=== PATIENT | male | born 1960 | race Two or more races ===

== ENCOUNTER → 2024-01-04 | Day surgery (SDC) | payer OTHER ==
[2024-01-02 15:46] LABS: Urine Bacteria None Seen /hpf (None Seen)
[2024-01-02 15:51] LABS: Urine Blood Negative /uL (Negative); Urine Clarity Clear (Clear); Urine Color Yellow (Yellow); Urine Protein, UAD Negative (Negative); Urine Specific Gravity 1.018 (1.001-1.035); Urine Urobilinogen Normal (Negative); Urine WBC 1 /hpf (0 - 3)
[2024-01-02 15:54] LABS: Basophils # (auto) 0.1 10 ^3/uL (0-0.2); Basophils % (auto) 0.9 % (0.0-2.0); Eosinophils # (auto) 0.3 10 ^3/uL (0-0.8); Eosinophils % (auto) 3.2 % (0.0-7.0); Hematocrit 42.2 % (41.0-53.0); Hemoglobin 14.7 g/dL (13.5-17.5); Lymphocytes # (auto) 2.1 10 ^3/uL (0.4-5.4); Lymphocytes % (auto) 23.6 % (10.0-50.0); Mean Corpuscular Hemoglobin 29.5 pg (28.0-32.0); Mean Corpuscular Hgb Conc. 34.7 g/dL (32.0-36.0); Mean Corpuscular Volume 84.9 fL (80.0-100.0); Monocytes # (auto) 0.7 10 ^3/uL (0-1.3); Monocytes % (auto) 7.9 % (0.0-12.0); Neutrophils # (auto) 5.9 10 ^3/uL (1.6-8.6); Neutrophils % (auto) 64.4 % (37.0-80.0); Nucleated Red Blood Cells % 0.1 %; Platelet Count (auto) 340 10^3/uL (140-450); Red Blood Cells 4.98 10^6/uL (4.5-5.90); Red Cell Distribution Width 14.3 % (11.8-14.3); White Blood Cell 9.1 10^3/uL (4.4-10.8)
[2024-01-02 16:14] LABS: INR 0.98 (0.9-1.15); Partial Thromboplastin Time 25.6 SEC (24.5-34.5); Prothrombin Time 10.4 sec (9.3-11.8)
[2024-01-02 16:52] LABS: Alanine Aminotransferase 35 U/L (7-40); Albumin 4.5 g/dL (3.2-4.8); Alkaline Phosphatase 73 U/L (46-116); Anion Gap 8 (5-15); Aspartate Aminotransferase 12 U/L (13-40); BUN/Creatinine Ratio 14.9 (10.0-20.0); Bilirubin, Total 0.6 mg/dL (0.2-1.0); Blood Urea Nitrogen 14 mg/dL (9-23); Calcium 10.8 mg/dL (8.7-10.4); Carbon Dioxide 27 mmol/L (20-31); Chloride 109 mmol/L (98-107); Glucose 105 mg/dL (74-106); Potassium 3.9 mmol/L (3.5-5.1); Sodium 144 mmol/L (136-145); Total Protein 6.6 g/dL (5.7-8.2)
[~2024-01-04] VITALS: Ht 180.3 cm; Wt 113.4 kg
[~2024-01-04] MED LIST: ACE3T PO; ACETAMINOPHEN IV 100 ML IV ONE; ACETAMINOPHEN IV 1000 MG/100ML (10MG/ML) IV ONE; CELECOXIB 100 MG CAP ONE; CELECOXIB 100 MG CAP PO ONE; DexAMETHasone SOD PHOS 10MG/1ML VIAL INJ ONE; FLUMAZENIL 0.1 MG/ML INJ 10ML MDV IV PRN; GABAPENTIN 400 MG CAP ONE; GABAPENTIN 400 MG CAP PO ONE; GLYCOPYRROLATE 0.2 MG/ML 1ML VIAL ONE; HYDROmorphone HCL 2 MG/ML VL/or syr IV PRN; IBUP-1454 PO; KETAMINE 50mg/ML 1ml syringe ONE; KETOROLAC TROMETH 30 MG/ML 1ML VIAL ONE; LEVO500T91 PO; LIDOCAINE 2% (LOCAL ANESTH.) PF 5ml SDV ONE; LIDOCAINE HCL 2% TOP JELLY 5ML TOP ONE; LISI20TA56 PO; METF-370 PO; METR-344 PO; NALOXONE HCL 0.4 MG/ML VIAL IV PRN; ONDANSETRON HCL 4 MG/2 ML VIAL IV PRN; ONDANSETRON HCL 4 MG/2 ML VIAL ONE; PROPOFOL 10 MG/ML 20 ML IV ONE; TAMS0.4C39 PO; TRAM-626 PO; TRAM50TA2 PO; ceFAZolin 2 GM/D5W100ml 100 ML IV ONE; ePHEDrine SULFATE 50 MG/ML AMP IV PRN; ePHEDrine SULFATE 50 MG/ML AMP ONE; fentaNYL CITRATE 100 MCG/2 ML VL IV PRN; fentaNYL CITRATE 100 MCG/2 ML VL ONE; hydrALAZINE HCL 20 MG/ML VL IV PRN; oxyCODONE HCL 5MG TAB PO PRN
[2024-01-04] MEDS: LIDOCAINE W/ EPINEPHRINE 1% 20ML VIAL ONE (08:55)
[2024-01-04] MEDS: BUPIVACAINE 0.25% INJ 50ML VIAL ONE (08:55)
[2024-01-04 09:04] VITALS: O2SAT 98
[2024-01-04 09:05] VITALS: TEMP 97.5
[2024-01-04 09:49] VITALS: BP 132/63; PULSE 59; RESP 10; O2SAT 97
== END | disposition home or self-care (01) ==
LOC: SUR 06:17
PROVIDERS: ATTEND Surgery
DX: K40.20 Bilateral inguinal hernia, without obstruction or gangrene, not specified as recurrent (principal); D17.6 Benign lipomatous neoplasm of spermatic cord; I10 Essential (primary) hypertension; E66.01 Morbid (severe) obesity due to excess calories; G47.30 Sleep apnea, unspecified; Z98.890 Other specified postprocedural states; Z68.34 Body mass index [BMI] 34.0-34.9, adult; Z87.891 Personal history of nicotine dependence; Z79.899 Other long term (current) drug therapy
CPT/HCPCS: 36415; 49505; 80053; 81001; 85025; 85610; 85730; 86850; 86900; 86901; 88305; C1781; J1100; J1885; J2003; J2405; J2704; J3010; J0131; J3490

== ENCOUNTER 2024-01-10 10:21 | Inpatient (IN) | payer OTHER ==
[~2024-01-10] VITALS: Ht 180.3 cm; Wt 112.1 kg
[~2024-01-10 10:21] MED LIST changes: -ACETAMINOPHEN IV 100 ML IV ONE; -ACETAMINOPHEN IV 1000 MG/100ML (10MG/ML) IV ONE; -CELECOXIB 100 MG CAP ONE; -CELECOXIB 100 MG CAP PO ONE; -DexAMETHasone SOD PHOS 10MG/1ML VIAL INJ ONE; -FLUMAZENIL 0.1 MG/ML INJ 10ML MDV IV PRN; -GABAPENTIN 400 MG CAP ONE; -GABAPENTIN 400 MG CAP PO ONE; -GLYCOPYRROLATE 0.2 MG/ML 1ML VIAL ONE; -HYDROmorphone HCL 2 MG/ML VL/or syr IV PRN; -KETAMINE 50mg/ML 1ml syringe ONE; -KETOROLAC TROMETH 30 MG/ML 1ML VIAL ONE; -LEVO500T91 PO; -LIDOCAINE 2% (LOCAL ANESTH.) PF 5ml SDV ONE; -LIDOCAINE HCL 2% TOP JELLY 5ML TOP ONE; -METR-344 PO; -NALOXONE HCL 0.4 MG/ML VIAL IV PRN; -ONDANSETRON HCL 4 MG/2 ML VIAL IV PRN; -ONDANSETRON HCL 4 MG/2 ML VIAL ONE; -PROPOFOL 10 MG/ML 20 ML IV ONE; -TRAM-626 PO; -ceFAZolin 2 GM/D5W100ml 100 ML IV ONE; -ePHEDrine SULFATE 50 MG/ML AMP IV PRN; -ePHEDrine SULFATE 50 MG/ML AMP ONE; -fentaNYL CITRATE 100 MCG/2 ML VL IV PRN; -fentaNYL CITRATE 100 MCG/2 ML VL ONE; -hydrALAZINE HCL 20 MG/ML VL IV PRN; -oxyCODONE HCL 5MG TAB PO PRN
[2024-01-10] MEDS ORDERED: ONDANSETRON HCL 4 MG/2 ML VIAL IV PRN (11:15)
[2024-01-10] MEDS ORDERED: D5W/SOD CHL 0.45%/KCL 20MEQ 1,000 ML IV SCH (11:15)
[2024-01-10] MEDS ORDERED: ceFAZolin 2 GM/D5W50ml 50 ML IV SCH (14:00)
[2024-01-10 16:57] VITALS: BP 131/69; PULSE 97; RESP 18; TEMP 98.4; O2SAT 98
[2024-01-10] MEDS: HYDROmorphone HCL 2 MG/ML VL/or syr IV PRN (17:05)
[2024-01-10] MEDS ORDERED: POTASSIUM CHLORIDE 20 MEQ in D5W/SOD CHL 0.45% 1,000 ML IV SCH (17:45)
[2024-01-10] MEDS: TAMSULOSIN HYDROCHLORIDE 0.4 MG CAP PO SCH (18:08)
[2024-01-10 18:23] VITALS: O2SAT 96
[2024-01-10 19:14] LABS: Basophils # (auto) 0.1 10 ^3/uL (0-0.2); Basophils % (auto) 0.5 % (0.0-2.0); Eosinophils # (auto) 0.6 10 ^3/uL (0-0.8); Eosinophils % (auto) 4.2 % (0.0-7.0); Hemoglobin 13.1 g/dL (13.5-17.5); Lymphocytes # (auto) 1.5 10 ^3/uL (0.4-5.4); Lymphocytes % (auto) 10.6 % (10.0-50.0); Mean Corpuscular Hemoglobin 28.6 pg (28.0-32.0); Mean Corpuscular Hgb Conc. 33.6 g/dL (32.0-36.0); Mean Corpuscular Volume 85.1 fL (80.0-100.0); Monocytes # (auto) 1.1 10 ^3/uL (0-1.3); Monocytes % (auto) 7.4 % (0.0-12.0); Neutrophils # (auto) 11.3 10 ^3/uL (1.6-8.6); Neutrophils % (auto) 77.3 % (37.0-80.0); Platelet Count (auto) 430 10^3/uL (140-450); Red Blood Cells 4.58 10^6/uL (4.5-5.90); Red Cell Distribution Width 13.7 % (11.8-14.3); White Blood Cell 14.6 10^3/uL (4.4-10.8)
[2024-01-10 19:36] LABS: Chloride 103 mmol/L (98-107); Potassium 4.1 mmol/L (3.5-5.1); Sodium 138 mmol/L (136-145)
[2024-01-10 19:37] LABS: Anion Gap 6 (5-15); Carbon Dioxide 29 mmol/L (20-31)
[2024-01-10 19:38] LABS: Calcium 10.6 mg/dL (8.7-10.4)
[2024-01-10 19:43] LABS: BUN/Creatinine Ratio 18.8 (10.0-20.0); Blood Urea Nitrogen 15 mg/dL (9-23); Glucose 155 mg/dL (74-106)
[2024-01-10] MEDS: ceFAZolin 2 GM/D5W50ml 50 ML IV SCH (20:21)
[2024-01-10 21:00] VITALS: BP 128/64; PULSE 82; RESP 18; TEMP 98.9; O2SAT 93
[2024-01-10 23:43] LABS: Chloride 104 mmol/L (98-107); Potassium 3.8 mmol/L (3.5-5.1); Sodium 138 mmol/L (136-145)
[2024-01-10 23:44] LABS: Anion Gap 7 (5-15); Calcium 10.3 mg/dL (8.7-10.4); Carbon Dioxide 27 mmol/L (20-31)
[2024-01-10 23:49] LABS: BUN/Creatinine Ratio 16.9 (10.0-20.0); Blood Urea Nitrogen 14 mg/dL (9-23); Glucose 178 mg/dL (74-106)
[2024-01-10 23:50] LABS: Magnesium 1.9 mg/dL (1.6-2.6)
[2024-01-11 01:00] VITALS: BP 122/62; PULSE 73; RESP 18; TEMP 98.6; O2SAT 93
[2024-01-11 05:00] VITALS: BP 135/66; PULSE 77; RESP 18; TEMP 98.4; O2SAT 96
[2024-01-11 09:03] VITALS: BP 122/66; PULSE 73; RESP 22; TEMP 98.6; O2SAT 96
[2024-01-11] MEDS: GADOTERATE MEG 7.5 MMOL/15ml INJ (0.5MMOL/ml) IV ONE (09:42)
[2024-01-11] MEDS: PANTOPRAZOLE 40 MG/10 ML VIAL INJ IV SCH (09:50)
[2024-01-11] MEDS: LISINOPRIL 5 MG TAB PO SCH (09:51)
[2024-01-11 13:00] VITALS: BP 122/73; PULSE 65; RESP 22; TEMP 97.9; O2SAT 97
[2024-01-11 16:32] LABS: INR 0.99 (0.9-1.15); Partial Thromboplastin Time 29.1 SEC (24.5-34.5); Prothrombin Time 10.5 sec (9.3-11.8)
[2024-01-11] MEDS: SODIUM CHLORIDE 0.9% 1,000 ML IV SCH (16:57)
[2024-01-11] MEDS: HYDROmorphone HCL 2 MG/ML VL/or syr IV PRN (17:01)
[2024-01-11 17:09] VITALS: BP 138/81; PULSE 78; RESP 20; TEMP 98; O2SAT 98
[2024-01-11 21:00] VITALS: BP 138/71; PULSE 74; RESP 20; TEMP 99.1; O2SAT 94
[2024-01-11] MEDS: ceFAZolin 2 GM/D5W100ml 100 ML IV SCH (22:41)
[2024-01-12] VITALS (9 sets, daily range): BP systolic 111–142; BP diastolic 60–76; PULSE 64–98; RESP 14–20; TEMP 97–98.9; O2SAT 91–100
[2024-01-12 02:53] LABS: Urine Bacteria None Seen /hpf (None Seen)
[2024-01-12 03:08] LABS: Urine Blood Negative /uL (Negative); Urine Clarity Clear (Clear); Urine Color Light-Yellow (Yellow); Urine Protein, UAD Negative (Negative); Urine Specific Gravity 1.012 (1.001-1.035); Urine Urobilinogen Normal (Negative); Urine WBC <1 /hpf (0 - 3); Urine pH 5.5 (5.0-9.0)
[2024-01-12] MEDS ORDERED: MEPERIDINE HCL (50 MG/ML) 1 ML VIAL ONE (09:57)
[2024-01-12] MEDS ORDERED: fentaNYL CITRATE 100 MCG/2 ML VL ONE (09:57)
[2024-01-12] MEDS ORDERED: MIDAZOLAM HCL 2MG/2ML 2ml VIAL (1mg/ml) ONE (09:57)
[2024-01-12] MEDS ORDERED: SUCCINYLCHOLINE CHLORIDE 20 MG/ML 10ML VIAL IV ONE (09:58)
[2024-01-12] MEDS: ceFAZolin 2 GM/D5W100ml 100 ML IV ONE (10:30)
[2024-01-12] MEDS: LIDOCAINE 1%HCL (LOCAL ANESTH) 10 ML MDV IJ ONE (10:31)
[2024-01-12] MEDS: LIDOCAINE 1% HCL (LOCAL ANESTH.) INJ 20ML MDV ONE (10:33)
[2024-01-12] MEDS ORDERED: METOCLOPRAMIDE HCL 5MG/ml INJ 2ml VIAL IV ONE (10:45)
[2024-01-12] MEDS ORDERED: MORPHINE SULFATE 4 MG/ML SYR/VIAL IV PRN (10:45)
[2024-01-12] MEDS ORDERED: ONDANSETRON HCL 4 MG/2 ML VIAL IV ONE (10:45)
[2024-01-12] MEDS ORDERED: HYDROmorphone HCL 2 MG/ML VL/or syr IV PRN (10:45)
[2024-01-12] MEDS ORDERED: MIDAZOLAM HCL 2MG/2ML 2ml VIAL (1mg/ml) IV PRN (10:45)
[2024-01-12] MEDS ORDERED: ePHEDrine SULFATE 50 MG/ML AMP IV PRN (10:45)
[2024-01-12] MEDS ORDERED: hydrALAZINE HCL 20 MG/ML VL IV PRN (10:45)
[2024-01-12] MEDS ORDERED: DexAMETHasone SOD PHOS 10MG/1ML VIAL INJ ONE (11:36)
[2024-01-12] MEDS ORDERED: ETOMIDATE (2MG/ML) 20ML VIAL IV ONE (14:29)
[2024-01-12] MEDS: ceFAZolin 2 GM/D5W50ml 50 ML IV SCH (23:18)
[2024-01-13 01:00] VITALS: BP 118/61; PULSE 79; RESP 18; TEMP 98.2; O2SAT 93
[2024-01-13 05:00] VITALS: BP 132/78; PULSE 74; RESP 20; TEMP 98.3; O2SAT 96
[2024-01-13] MEDS ORDERED: CEFAZOLIN IV SCH (06:00)
[2024-01-13] MEDS ORDERED: [UNRECOGNIZED DRUG - OTHER] IV SCH (06:00)
[2024-01-13 09:14] VITALS: BP 130/73; PULSE 61; RESP 18; TEMP 97.8; O2SAT 98
[2024-01-13] MEDS ORDERED: METR-344 PO (10:38)
[2024-01-13] MEDS ORDERED: LEVO500T91 PO (10:38)
[2024-01-13] MEDS ORDERED: TRAM-626 PO (10:38)
[2024-01-13 13:00] VITALS: BP 113/65; PULSE 62; RESP 18; TEMP 98.6; O2SAT 97
== END 2024-01-13 14:30 | disposition home or self-care (01) | DRG 718 ==
LOC: CENTRAL 16:08 → EAST 16:21
PROVIDERS: ADMIT Surgery; ATTEND Family Medicine
PROC: 0VC50ZZ Extirpation of Matter from Scrotum, Open Approach (ICD-10-PCS; principal; 2024-01-12 10:02)
DX: S30.22XA Contusion of scrotum and testes, initial encounter (principal); I10 Essential (primary) hypertension; E86.0 Dehydration; E66.9 Obesity, unspecified; R73.03 Prediabetes; X58.XXXA Exposure to other specified factors, initial encounter; Y93.89 Activity, other specified; Y92.89 Other specified places as the place of occurrence of the external cause; Y99.8 Other external cause status; Z68.34 Body mass index [BMI] 34.0-34.9, adult
CPT/HCPCS: 36415; 71045; 72195; 80048; 81001; 82962; 83735; 85025; 85610; 85730; 86850; 86900; 86901; 87081; G0378; J0330; J1100; J2003; J2250; J2405; J2470